=== PATIENT | male | born 1990 | race Caucasian/White ===

== ENCOUNTER 2021-09-25 14:20 | Inpatient (IN) | payer SELFPAY ==
[2021-09-25 15:09] VITALS: BMI 30.1
[2021-09-25] MEDS ORDERED: MAGNESIUM CITRATE 300 ML BOTTLE PO PRN (17:34)
[2021-09-25] MEDS ORDERED: BISMUTH SUBSALICYLATE 524 MG/30 ML PO PRN (17:34)
[2021-09-25] MEDS ORDERED: ONDANSETRON *ODT* 4 MG TABLET SL PRN (17:34)
[2021-09-25] MEDS ORDERED: DICYCLOMINE HCL 10 MG CAPSULE PO PRN (17:34)
[2021-09-25] MEDS ORDERED: ACETAMINOPHEN 325 MG TABLET (FP) PO PRN ×2 (17:34)
[2021-09-25] MEDS ORDERED: BENZOCAINE/MENTHOL (CHLORASEPTIC ) LOZENGE MM PRN (17:34)
[2021-09-25] MEDS ORDERED: MAGNESIUM HYDROX 2400MG/30ML ORAL SUSPENSION 30 ML CUP PO PRN (17:34)
[2021-09-25] MEDS ORDERED: NICOTINE 10 MG CARTRIDGE (INHALER) IH PRN (17:34)
[2021-09-25] MEDS ORDERED: MAG HYDROX/AL HYDROX/SIMETH 30 ML UNIT-DOSE CUP PO PRN (17:34)
[2021-09-25] MEDS ORDERED: IBUPROFEN 600 MG TABLET (FP) PO PRN (17:34)
[2021-09-25] MEDS ORDERED: LOPERAMIDE HCL 2 MG CAPSULE PO PRN (17:34)
[2021-09-25] MEDS ORDERED: cloNIDine HCL 0.1 MG TABLET PO PRN (17:36)
[2021-09-25] MEDS ORDERED: methaDONE HCL 10 MG TABLET (FOR DETOX USE ONLY) PO ONE (21:00)
[2021-09-25] MEDS: METHOCARBAMOL 500 MG TABLET PO PRN (21:41)
[2021-09-25] MEDS: MELATONIN 5 MG TABLETS PO PRN (21:44)
[2021-09-25] MEDS: THIAMINE HCL 100 MG TABLET (FP) PO SCH (23:23)
[2021-09-26] MEDS ORDERED: methaDONE HCL 10 MG TABLET (FOR DETOX USE ONLY) ONE (09:04)
[2021-09-26] MEDS: METHOCARBAMOL 500 MG TABLET PO PRN ×2 (10:13→22:15)
[2021-09-26] MEDS: hydrOXYzine PAMOATE 25 MG CAPSULE (FP) PO PRN ×2 (10:13→22:15)
[2021-09-26] MEDS: PRENATAL VITAMINS W/ FOLIC ACID TABLET (FP) PO SCH (10:14)
[2021-09-26] MEDS: NICOTINE 7 MG/24 HOURS TOPICAL PATCH TD SCH (10:15)
[2021-09-26] MEDS ORDERED: ACETAMINOPHEN 325 MG TABLET (FP) PO ONE (11:00)
[2021-09-26 11:09] LABS: CALCIUM 9.3 mg/dL (8.5-10.1)
[2021-09-26 11:10] LABS: HEMATOCRIT 42.7 % (35.4-49); HEMOGLOBIN 14.3 GM/dL (11.7-16.9); MCH 31.2 pg (25.7-33.7); MCHC 33.5 g/dl (32.0-35.9); MEAN PLT VOLUME 7.7 fl (7.5-11.1); PLATELET COUNT 287 10^3/uL (134-434); RBC 4.59 M/mm3 (4.00-5.60); RDW 13.6 % (11.9-15.9)
[2021-09-26 11:13] LABS: BLOOD UREA NITROGEN 15.4 mg/dL (7-18); CREATININE 0.9 mg/dL (0.55-1.3); TOT PROT 7.1 g/dl (6.4-8.2)
[2021-09-26] MEDS: THIAMINE HCL 100 MG TABLET (FP) PO SCH (22:15)
[2021-09-26] MEDS: MELATONIN 5 MG TABLETS PO PRN (22:17)
[2021-09-27] MEDS ORDERED: methaDONE HCL 10 MG TABLET (FOR DETOX USE ONLY) PO ONE (10:00)
[2021-09-27] MEDS: NICOTINE 7 MG/24 HOURS TOPICAL PATCH TD SCH (10:37)
[2021-09-27] MEDS: PRENATAL VITAMINS W/ FOLIC ACID TABLET (FP) PO SCH (10:37)
[2021-09-27] MEDS: hydrOXYzine PAMOATE 25 MG CAPSULE (FP) PO PRN ×2 (17:58→22:25)
[2021-09-27] MEDS: MELATONIN 5 MG TABLETS PO PRN (22:25)
[2021-09-27] MEDS: THIAMINE HCL 100 MG TABLET (FP) PO SCH (22:25)
[2021-09-27] MEDS: METHOCARBAMOL 500 MG TABLET PO PRN (22:26)
[2021-09-28] MEDS: hydrOXYzine PAMOATE 25 MG CAPSULE (FP) PO PRN ×2 (06:02→17:48)
[2021-09-28] MEDS: METHOCARBAMOL 500 MG TABLET PO PRN ×2 (06:03→22:26)
[2021-09-28] MEDS ORDERED: methaDONE HCL 10 MG TABLET (FOR DETOX USE ONLY) ONE (09:25)
[2021-09-28] MEDS: NICOTINE 7 MG/24 HOURS TOPICAL PATCH TD SCH (10:21)
[2021-09-28] MEDS: PRENATAL VITAMINS W/ FOLIC ACID TABLET (FP) PO SCH (10:23)
[2021-09-28] MEDS: THIAMINE HCL 100 MG TABLET (FP) PO SCH (22:26)
[2021-09-28] MEDS: IBUPROFEN 400 MG TABLET (FP) PO PRN (22:26)
[2021-09-28] MEDS: MELATONIN 5 MG TABLETS PO PRN (22:27)
[2021-09-29] MEDS ORDERED: methaDONE HCL 10 MG TABLET (FOR DETOX USE ONLY) PO ONE (10:00)
[2021-09-29] MEDS: METHOCARBAMOL 500 MG TABLET PO PRN ×2 (10:24→22:22)
[2021-09-29] MEDS: PRENATAL VITAMINS W/ FOLIC ACID TABLET (FP) PO SCH (10:24)
[2021-09-29] MEDS: hydrOXYzine PAMOATE 25 MG CAPSULE (FP) PO PRN ×2 (10:25→22:22)
[2021-09-29] MEDS: NICOTINE 7 MG/24 HOURS TOPICAL PATCH TD SCH (10:26)
[2021-09-29] MEDS: IBUPROFEN 400 MG TABLET (FP) PO PRN (22:22)
[2021-09-29] MEDS: MELATONIN 5 MG TABLETS PO PRN (22:23)
[2021-09-29] MEDS: THIAMINE HCL 100 MG TABLET (FP) PO SCH (22:41)
[2021-09-30 09:46] VITALS: BP 113/76; PULSE 69; TEMP 96.9
[2021-09-30] MEDS: NICOTINE 7 MG/24 HOURS TOPICAL PATCH TD SCH (10:04)
[2021-09-30] MEDS: hydrOXYzine PAMOATE 25 MG CAPSULE (FP) PO PRN (10:05)
[2021-09-30] MEDS: METHOCARBAMOL 500 MG TABLET PO PRN (10:05)
[2021-09-30] MEDS: PRENATAL VITAMINS W/ FOLIC ACID TABLET (FP) PO SCH (10:05)
== END 2021-09-30 10:58 | disposition home or self-care (01) | DRG 773 ==
LOC: YASAS 14:20 → Y6N 20:56
PROVIDERS: ADMIT Allergy & Immunology; ATTEND Surgery
PROC: HZ2ZZZZ Detoxification Services for Substance Abuse Treatment (ICD-10-PCS; principal; 2021-09-25)
DX: F11.23 Opioid dependence with withdrawal (principal); F12.20 Cannabis dependence, uncomplicated; F17.210 Nicotine dependence, cigarettes, uncomplicated; E66.9 Obesity, unspecified; Z68.30 Body mass index [BMI] 30.0-30.9, adult
CPT/HCPCS: 36415; 80053; 85027; 86593; 86780; 87811; 93005; 93010; C9803-CS; J0735; U0003; U0005

== ENCOUNTER 2021-10-23 16:13 | Inpatient (IN) | payer SELFPAY ==
[2021-10-23 16:48] VITALS: BMI 25.8
[2021-10-23] MEDS ORDERED: BENZOCAINE/MENTHOL (CHLORASEPTIC ) LOZENGE MM PRN (17:28)
[2021-10-23] MEDS ORDERED: NICOTINE POLACRILEX 2 MG GUM BUC PRN (17:28)
[2021-10-23] MEDS ORDERED: LOPERAMIDE HCL 2 MG CAPSULE PO PRN (17:28)
[2021-10-23] MEDS ORDERED: MAGNESIUM CITRATE 300 ML BOTTLE PO PRN (17:28)
[2021-10-23] MEDS ORDERED: MAG HYDROX/AL HYDROX/SIMETH 30 ML UNIT-DOSE CUP PO PRN (17:28)
[2021-10-23] MEDS ORDERED: BISMUTH SUBSALICYLATE 524 MG/30 ML PO PRN (17:28)
[2021-10-23] MEDS ORDERED: DICYCLOMINE HCL 10 MG CAPSULE PO PRN (17:28)
[2021-10-23] MEDS ORDERED: IBUPROFEN 600 MG TABLET (FP) PO PRN (17:28)
[2021-10-23] MEDS ORDERED: ACETAMINOPHEN 325 MG TABLET (FP) PO PRN ×2 (17:28)
[2021-10-23] MEDS ORDERED: MAGNESIUM HYDROX 2400MG/30ML ORAL SUSPENSION 30 ML CUP PO PRN (17:28)
[2021-10-23] MEDS ORDERED: ONDANSETRON *ODT* 4 MG TABLET SL PRN (17:28)
[2021-10-23] MEDS ORDERED: IBUPROFEN 400 MG TABLET (FP) PO PRN (17:28)
[2021-10-23] MEDS ORDERED: methaDONE HCL 10 MG TABLET (FOR DETOX USE ONLY) PO ONE (17:30)
[2021-10-23] MEDS ORDERED: cloNIDine HCL 0.1 MG TABLET PO PRN (17:30)
[2021-10-23] MEDS: hydrOXYzine PAMOATE 25 MG CAPSULE (FP) PO PRN (19:44)
[2021-10-23] MEDS: NICOTINE 10 MG CARTRIDGE (INHALER) IH PRN (19:53)
[2021-10-23] MEDS: THIAMINE HCL 100 MG TABLET (FP) PO SCH (22:47)
[2021-10-23] MEDS: MELATONIN 5 MG TABLETS PO SCH (22:47)
[2021-10-24] MEDS ORDERED: methaDONE HCL 10 MG TABLET (FOR DETOX USE ONLY) ONE (09:06)
[2021-10-24] MEDS: PRENATAL VITAMINS W/ FOLIC ACID TABLET (FP) PO SCH (10:11)
[2021-10-24] MEDS ORDERED: PENICILLIN G BENZATHINE 2,400,000 UNIT/4 ML PFS IM ONE (11:59)
[2021-10-24] MEDS: THIAMINE HCL 100 MG TABLET (FP) PO SCH (23:01)
[2021-10-24] MEDS: MELATONIN 5 MG TABLETS PO SCH (23:01)
[2021-10-25] MEDS ORDERED: methaDONE HCL 10 MG TABLET (FOR DETOX USE ONLY) PO ONE (10:00)
[2021-10-25] MEDS: PRENATAL VITAMINS W/ FOLIC ACID TABLET (FP) PO SCH (10:01)
[2021-10-25] MEDS: diazePAM 5 MG TABLET PO PRN ×3 (10:02→20:46)
[2021-10-25 10:20] LABS: HEMATOCRIT 43.2 % (35.4-49); HEMOGLOBIN 14.4 GM/dL (11.7-16.9); MCH 30.7 pg (25.7-33.7); MCHC 33.3 g/dl (32.0-35.9); MEAN CELL VOLUME 92.3 fl (80-96); MEAN PLT VOLUME 7.7 fl (7.5-11.1); PLATELET COUNT 300 10^3/uL (134-434); RBC 4.68 M/mm3 (4.00-5.60); RDW 13.1 % (11.9-15.9); WHITE BLOOD COUNT 6.6 K/mm3 (4.0-10.0)
[2021-10-25 10:27] LABS: ALBUMIN 3.8 g/dl (3.4-5.0); BLOOD UREA NITROGEN 14.2 mg/dL (7-18)
[2021-10-25 10:30] LABS: CREATININE 0.9 mg/dL (0.55-1.3)
[2021-10-25 10:32] LABS: BILIRUBIN,TOTAL 0.8 mg/dL (0.2-1); TOT PROT 6.9 g/dl (6.4-8.2)
[2021-10-25] MEDS: NICOTINE 10 MG CARTRIDGE (INHALER) IH PRN (15:27)
[2021-10-25] MEDS: hydrOXYzine PAMOATE 25 MG CAPSULE (FP) PO PRN (18:00)
[2021-10-25] MEDS: THIAMINE HCL 100 MG TABLET (FP) PO SCH (22:20)
[2021-10-25] MEDS: MELATONIN 5 MG TABLETS PO SCH (22:20)
[2021-10-25] MEDS: METHOCARBAMOL 500 MG TABLET PO PRN (22:20)
[2021-10-26] MEDS ORDERED: methaDONE HCL 10 MG TABLET (FOR DETOX USE ONLY) ONE (09:45)
[2021-10-26] MEDS: PRENATAL VITAMINS W/ FOLIC ACID TABLET (FP) PO SCH (10:45)
[2021-10-26] MEDS: METHOCARBAMOL 500 MG TABLET PO PRN ×2 (10:45→18:13)
[2021-10-26] MEDS: diazePAM 5 MG TABLET PO PRN ×3 (10:46→22:29)
[2021-10-26] MEDS: hydrOXYzine PAMOATE 25 MG CAPSULE (FP) PO PRN ×2 (10:46→22:29)
[2021-10-26] MEDS: THIAMINE HCL 100 MG TABLET (FP) PO SCH (22:27)
[2021-10-26] MEDS: MELATONIN 5 MG TABLETS PO SCH (22:27)
[2021-10-26] MEDS: NICOTINE 10 MG CARTRIDGE (INHALER) IH PRN (22:39)
[2021-10-27] MEDS: hydrOXYzine PAMOATE 25 MG CAPSULE (FP) PO PRN ×2 (05:28→22:19)
[2021-10-27] MEDS: METHOCARBAMOL 500 MG TABLET PO PRN ×3 (05:28→22:19)
[2021-10-27] MEDS ORDERED: methaDONE HCL 10 MG TABLET (FOR DETOX USE ONLY) PO ONE (10:00)
[2021-10-27] MEDS: PRENATAL VITAMINS W/ FOLIC ACID TABLET (FP) PO SCH (10:33)
[2021-10-27] MEDS: THIAMINE HCL 100 MG TABLET (FP) PO SCH (22:19)
[2021-10-27] MEDS: MELATONIN 5 MG TABLETS PO SCH (22:19)
[2021-10-27] MEDS: NICOTINE 10 MG CARTRIDGE (INHALER) IH PRN (22:21)
[2021-10-28 08:58] VITALS: BP 100/59; PULSE 52; TEMP 96.9
[2021-10-28] MEDS: PRENATAL VITAMINS W/ FOLIC ACID TABLET (FP) PO SCH (10:21)
== END 2021-10-28 11:42 | disposition home or self-care (01) | DRG 773 ==
LOC: YASAS 16:13 → Y3N 17:54
PROVIDERS: ADMIT Allergy & Immunology; ATTEND Surgery
PROC: HZ2ZZZZ Detoxification Services for Substance Abuse Treatment (ICD-10-PCS; principal; 2021-10-23)
DX: F11.23 Opioid dependence with withdrawal (principal); F12.20 Cannabis dependence, uncomplicated; F17.210 Nicotine dependence, cigarettes, uncomplicated; R76.8 Other specified abnormal immunological findings in serum; Z86.19 Personal history of other infectious and parasitic diseases
CPT/HCPCS: 36415; 80053; 85027; 86593; 86780; 87811; C9803-CS; J0735; Q0162; U0003; U0005

== ENCOUNTER 2021-11-02 11:39 | Emergency (ER) | payer SELFPAY ==
[2021-11-02 11:50] VITALS: BP 103/68; PULSE 70; TEMP 97.7; BMI 26.2
[2021-11-02] MEDS ORDERED: diazePAM 5 MG TABLET PO ONE (12:33)
[2021-11-02] MEDS ORDERED: diazePAM 5 MG TABLET ONE (12:35)
== END 2021-11-02 13:32 | disposition home or self-care (01) ==
LOC: JERFT 11:39
DX: F41.9 Anxiety disorder, unspecified (principal)
CPT/HCPCS: 99283-25

== ENCOUNTER 2022-04-07 11:56 | Inpatient (IN) | payer SELFPAY ==
[2022-04-07 12:25] VITALS: BMI 23.6
[2022-04-07] MEDS ORDERED: methaDONE HCL 10 MG TABLET (FOR DETOX USE ONLY) PO ONE (14:11)
[2022-04-07] MEDS ORDERED: LOPERAMIDE HCL 2 MG CAPSULE PO PRN (14:11)
[2022-04-07] MEDS ORDERED: IBUPROFEN 600 MG TABLET (FP) PO PRN (14:11)
[2022-04-07] MEDS ORDERED: IBUPROFEN 400 MG TABLET (FP) PO PRN (14:11)
[2022-04-07] MEDS ORDERED: MAGNESIUM HYDROX 2400MG/30ML ORAL SUSPENSION 30 ML CUP PO PRN (14:11)
[2022-04-07] MEDS ORDERED: POLYETHYLENE GLYCOL (HEALTHYLAX) 3350 17 GM PACKET PO PRN (14:11)
[2022-04-07] MEDS ORDERED: NICOTINE POLACRILEX 2 MG GUM BUC PRN (14:11)
[2022-04-07] MEDS ORDERED: BENZOCAINE/MENTHOL (CHLORASEPTIC ) LOZENGE MM PRN (14:11)
[2022-04-07] MEDS ORDERED: ACETAMINOPHEN 325 MG TABLET (FP) PO PRN (14:11)
[2022-04-07] MEDS ORDERED: ONDANSETRON *ODT* 4 MG TABLET SL PRN (14:11)
[2022-04-07] MEDS ORDERED: BISMUTH SUBSALICYLATE 262 MG/15 ML BTL PO PRN (14:11)
[2022-04-07] MEDS ORDERED: NALOXONE HCL (KLOXXADO) 8 MG SPRAY NS PRN (14:11)
[2022-04-07] MEDS ORDERED: NICOTINE 7 MG/24 HOURS TOPICAL PATCH TD PRN (14:11)
[2022-04-07] MEDS ORDERED: MAG HYDROX/AL HYDROX/SIMETH 30 ML UNIT-DOSE CUP PO PRN (14:11)
[2022-04-07] MEDS ORDERED: DICYCLOMINE HCL 10 MG CAPSULE PO PRN (14:11)
[2022-04-07] MEDS ORDERED: methaDONE HCL 10 MG TABLET (FOR DETOX USE ONLY) ONE (14:52)
[2022-04-07 17:00] LABS: HEMATOCRIT 43.1 % (35.4-49); HEMOGLOBIN 14.8 GM/dL (11.7-16.9); MCH 31.2 pg (25.7-33.7); MCHC 34.3 g/dl (32.0-35.9); MEAN PLT VOLUME 7.7 fl (7.5-11.1); PLATELET COUNT 306 10^3/uL (134-434); RBC 4.74 M/mm3 (4.00-5.60); RDW 13.4 % (11.9-15.9)
[2022-04-07 17:08] LABS: ALBUMIN 4.1 g/dl (3.4-5.0); CALCIUM 9.5 mg/dL (8.5-10.1)
[2022-04-07 17:09] LABS: BLOOD UREA NITROGEN 12.3 mg/dL (7-18)
[2022-04-07 17:11] LABS: CREATININE 0.8 mg/dL (0.55-1.3)
[2022-04-07 17:12] LABS: BILIRUBIN,TOTAL 0.6 mg/dL (0.2-1); TOT PROT 7.4 g/dl (6.4-8.2)
[2022-04-07] MEDS: MELATONIN 5 MG TABLETS PO SCH (22:32)
[2022-04-07] MEDS: THIAMINE HCL 100 MG TABLET (FP) PO SCH (22:32)
[2022-04-08] MEDS: PRENATAL VITAMINS W/ FOLIC ACID TABLET (FP) PO SCH (10:14)
[2022-04-08] MEDS: NICOTINE 10 MG CARTRIDGE (INHALER) IH PRN (10:18)
[2022-04-08] MEDS ORDERED: PENICILLIN G BENZATHINE 2,400,000 UNIT/4 ML PFS IM ONE (11:00)
[2022-04-08] MEDS: MELATONIN 5 MG TABLETS PO SCH (22:50)
[2022-04-08] MEDS: THIAMINE HCL 100 MG TABLET (FP) PO SCH (22:51)
[2022-04-09] MEDS ORDERED: methaDONE HCL 10 MG TABLET (FOR DETOX USE ONLY) PO ONE (10:00)
[2022-04-09] MEDS: PRENATAL VITAMINS W/ FOLIC ACID TABLET (FP) PO SCH (10:05)
[2022-04-09] MEDS: ACETAMINOPHEN 325 MG TABLET (FP) PO PRN (10:07)
[2022-04-09] MEDS: MELATONIN 5 MG TABLETS PO SCH (22:17)
[2022-04-09] MEDS: THIAMINE HCL 100 MG TABLET (FP) PO SCH (22:17)
[2022-04-09] MEDS: METHOCARBAMOL 500 MG TABLET PO PRN (22:18)
[2022-04-10] MEDS: PRENATAL VITAMINS W/ FOLIC ACID TABLET (FP) PO SCH (10:31)
[2022-04-10] MEDS: METHOCARBAMOL 500 MG TABLET PO PRN ×2 (10:31→22:23)
[2022-04-10] MEDS: NICOTINE 10 MG CARTRIDGE (INHALER) IH PRN (10:33)
[2022-04-10] MEDS: THIAMINE HCL 100 MG TABLET (FP) PO SCH (22:22)
[2022-04-10] MEDS: MELATONIN 5 MG TABLETS PO SCH (22:22)
[2022-04-11] MEDS ORDERED: methaDONE HCL 10 MG TABLET (FOR DETOX USE ONLY) PO ONE (10:00)
[2022-04-11] MEDS: METHOCARBAMOL 500 MG TABLET PO PRN ×2 (10:39→17:41)
[2022-04-11] MEDS: PRENATAL VITAMINS W/ FOLIC ACID TABLET (FP) PO SCH (10:39)
[2022-04-11] MEDS: NICOTINE 10 MG CARTRIDGE (INHALER) IH PRN ×2 (10:40→17:27)
[2022-04-11] MEDS: ACETAMINOPHEN 325 MG TABLET (FP) PO PRN (10:40)
[2022-04-11] MEDS: MELATONIN 5 MG TABLETS PO SCH (22:32)
[2022-04-11] MEDS: THIAMINE HCL 100 MG TABLET (FP) PO SCH (22:32)
[2022-04-12] MEDS: PRENATAL VITAMINS W/ FOLIC ACID TABLET (FP) PO SCH (10:11)
[2022-04-12 13:24] VITALS: BP 116/73; PULSE 100; RESP 20; TEMP 98.1
== END 2022-04-12 12:56 | disposition home or self-care (01) | DRG 773 ==
LOC: YASAS 11:56 → Y6N 14:13
PROVIDERS: ADMIT Allergy & Immunology; ATTEND Surgery
PROC: HZ2ZZZZ Detoxification Services for Substance Abuse Treatment (ICD-10-PCS; principal; 2022-04-07)
DX: F11.23 Opioid dependence with withdrawal (principal); F14.20 Cocaine dependence, uncomplicated; F12.20 Cannabis dependence, uncomplicated; F17.210 Nicotine dependence, cigarettes, uncomplicated; F19.282 Other psychoactive substance dependence with psychoactive substance-induced sleep disorder; F19.280 Other psychoactive substance dependence with psychoactive substance-induced anxiety disorder; R01.1 Cardiac murmur, unspecified; Z86.19 Personal history of other infectious and parasitic diseases; Z56.0 Unemployment, unspecified
CPT/HCPCS: 36415; 80053; 85027; 86593; 86780; 87811; 93005; 93010; C9803-CS; U0003; U0005